=== PATIENT | male | born 1940 | race Caucasian/White ===

== ENCOUNTER 2022-08-26 17:24 | Inpatient (IN) | payer OTHER ==
[~2022-08-26] VITALS: Ht 180.3 cm; Wt 78.0 kg
[2022-08-26] MEDS ORDERED: Zyloprim300 MG PO (17:40)
[2022-08-26] MEDS ORDERED: TAMS.4ER PO (17:41)
[2022-08-26] MEDS ORDERED: Prinivil10 MG PO (17:41)
[2022-08-26] MEDS ORDERED: LEVOTHYROXINE75 MC8 PO (17:41)
[2022-08-26 17:56] LABS: BASOPHILS ABSOLUTE AUTO 0.03 K/mm3 (0.00-0.23); BASOPHILS PERCENT AUTO 1 % (0-2); EOSINOPHILS ABSOLUTE AUTO 0.14 K/mm3 (0.00-0.68); EOSINOPHILS PERCENT AUTO 3 % (0-6); Hematocrit 31.4 % (37.0-53.0); Hemoglobin 10.6 g/dL (13.5-17.5); IMMATURE GRAN ABSOLUTE AUTO 0.02 K/mm3 (0.00-0.10); IMMATURE GRAN PERCENT AUTO 0 % (0-1); LYMPHOCYTES ABSOLUTE AUTO 1.24 K/mm3 (0.84-5.20); LYMPHOCYTES PERCENT AUTO 23 % (21-46); MONOCYTES ABSOLUTE AUTO 0.41 K/mm3 (0.16-1.47); MONOCYTES PERCENT AUTO 8 % (4-13); Mean Corpuscular HGB 29.7 pg (26.0-34.0); Mean Corpuscular HGB Conc 33.8 g/dL (31.5-36.5); Mean Corpuscular Volume 88 fL (80-100); Mean Platelet Volume 10.4 fL (9.1-12.4); NEUTROPHILS PERCENT AUTO 66 % (41-73); Platelet Count 271 K/mm3 (150-400); RDW Coefficient Variation 14.7 % (11.7-14.2); RDW Standard Deviation 47.1 fL (35.1-46.3); Red Blood Cell Count 3.57 M/mm3 (4.30-5.90); White Blood Cell Count 5.44 K/mm3 (4.00-11.30)
[2022-08-26 18:16] LABS: Albumin, Blood 3.6 g/dL (3.4-5.0); Albumin/Globulin Ratio 1.2 (0.8-1.8); Bilirubin, Total 0.4 mg/dL (0.1-1.0); Bun/Creatinine Ratio 13.7 (12.0-20.0); Calcium, Blood 6.9 mg/dL (8.5-10.1); Creatinine, Blood 1.83 mg/dL (0.60-1.20); Potassium, Blood 7.3 mmol/L (3.5-5.5); Total Protein, Blood 6.6 g/dL (6.4-8.2)
[2022-08-26 20:01] LABS: Bun/Creatinine Ratio 13.7 (12.0-20.0); Calcium, Blood 6.8 mg/dL (8.5-10.1); Creatinine, Blood 1.82 mg/dL (0.60-1.20)
[2022-08-26 20:18] LABS: Influenza A, PCR NEGATIVE (NEGATIVE); Influenza B, PCR NEGATIVE (NEGATIVE); Resp Syncytial Virus, PCR NEGATIVE (NEGATIVE); SARS-Cov-2 (COVID-19) PCR, MMC NEGATIVE (NEGATIVE)
[2022-08-26 22:30] LABS: Phosphorus, Blood 3.3 mg/dL (2.5-4.9); Thyroid Stimulating Hormone 0.697 uIU/mL (0.360-4.800); Uric Acid, Blood 2.2 mg/dL (3.5-7.2)
[2022-08-27 00:56] LABS: Calcium, Blood 6.2 mg/dL (8.5-10.1); Creatinine, Blood 1.8 mg/dL (0.60-1.20); Potassium, Blood 6.6 mmol/L (3.5-5.5)
[2022-08-27 02:38] LABS: Bun/Creatinine Ratio 14.4 (12.0-20.0); Calcium, Blood 5.6 mg/dL (8.5-10.1); Creatinine, Blood 1.8 mg/dL (0.60-1.20); Potassium, Blood 6.3 mmol/L (3.5-5.5)
[2022-08-27 05:07] LABS: Hematocrit 30.5 % (37.0-53.0); Mean Corpuscular HGB 30.2 pg (26.0-34.0); Mean Corpuscular HGB Conc 32.8 g/dL (31.5-36.5); Mean Corpuscular Volume 92 fL (80-100); Mean Platelet Volume 10.5 fL (9.1-12.4); Platelet Count 253 K/mm3 (150-400); RDW Coefficient Variation 15.2 % (11.7-14.2); RDW Standard Deviation 51.3 fL (35.1-46.3); Red Blood Cell Count 3.31 M/mm3 (4.30-5.90); White Blood Cell Count 7.79 K/mm3 (4.00-11.30)
--- NOTE | 2022-08-27 05:38 | NUR ---
SHIFT SUMMARY 82 YR M ADMITTED ON 08/26/22 FOR HYPERKALEMIA. DNR. PT'S K+ LEVEL IS TRENDING DOWN AFTER FIRST GOING UP FROM 6.0 TO 6.6 BETWEEN 1930 AND MIDNIGHT LAST NIGHT. TX WAS ORDERED AND GIVEN BUT LABS WERE DRAWN MINUTES BEFORE AND NEXT ROUND OF TX WAS BASED ON THOSE LABS. CALLED HOSPITALIST AND SECOND ROUND OF TX FOR HYPERKALEMIA WAS HELD PENDING LATEST TEST RESULTS. AT APPROX 0400 PTSTATED THAT HE WAS HAVING PAIN AND TIGHTNESS IN HIS CHEST. HOSPITALIST WAS CALLED AND EKG WELL NITRO WAS ORDERED. TROPONIN LABS WELL. EKGHAD SLIGHT CHANGE FROM PRIOR ONE DONE IN ED, AND TROPONIN LABS ARE NOT IN YET. PT TOOK 1 NITRO AND STATED THAT HE FELT MUCH BETTER. WILL CONTINUE TO MONITOR.
[2022-08-27 05:52] LABS: Albumin, Blood 3.1 g/dL (3.4-5.0); Anion Gap 7 mmol/L (6-16); Blood Urea Nitrogen 25 mg/dL (8-24); Bun/Creatinine Ratio 14.6 (12.0-20.0); CO2, Blood 16 mmol/L (21-32); Calcium, Blood 6.6 mg/dL (8.5-10.1); Chloride, Blood 118 mmol/L (98-108); Creatinine, Blood 1.71 mg/dL (0.60-1.20); Glomerular Filtration Rate 39 (60-); Glucose, Blood 49 mg/dL (70-99); Phosphorus, Blood 3.2 mg/dL (2.5-4.9); Sodium, Blood 141 mmol/L (136-145)
--- NOTE | 2022-08-27 06:07 | NUR ---
SPOKE WITH DR RENDON, HE REVIEWED THE EKG. I LET HIM KNOW THE TROPONIN IS NOW 102 AND THE POTASSIUM IS NOW WNL. PT'S BS IS 49. DR ORDERED D50 AND A REPEAT TROPONIN AT 0800. WILL UPDATE PRIMARY RN.
[2022-08-27 08:17] LABS: Bun/Creatinine Ratio 14.9 (12.0-20.0); Calcium, Blood 6.3 mg/dL (8.5-10.1); Creatinine, Blood 1.68 mg/dL (0.60-1.20); Potassium, Blood 5.5 mmol/L (3.5-5.5)
--- NOTE | 2022-08-27 13:59 | NUR ---
CASE ASSISTANT CALLED RN AND REPORTS PATIENT RATE DROPPED TO 49 BPM AND IS NOW LOW 50'S.
--- NOTE | 2022-08-27 14:23 | NUR ---
DR. JANE NOTIFIED OF PATIENT'S BRADYCARDIA
--- NOTE | 2022-08-27 19:28 | NUR ---
PATIENT IS ALERT AND ORIENTED AND COOPERATIVE WITH CARE. NO C/O CP THIS SHIFT. FIRST PART OF STRESS TEST WAS COMPLETED TODAY. PLAN IS TO FINISH THE STRESS TEST TOMORROW MORNING. INDEPENDENT IN ROOM. NO C/O PAIN. REPORT GIVEN TO ONCOMING RN.
--- NOTE | 2022-08-28 05:02 | NUR ---
NIGHTSHIFT SUMMARY Patient AOx4, independent in room. Denied muscle weakness, syncope when walking. Patient reported minor episode of chest pain. He reported pain when walking back to bed from bathroom, but once in bed pain resolved. He reported the next few times he walked to BR, no pain occurred. No caffiene after 8pm, NPO at midnight, for stess test in AM. Vitals stable this shift. No other concerns, plan is to continue to monitor for cardiac sx, and awaiting tests this morning.
[2022-08-28 06:55] LABS: CHOL/HDL RATIO 4.1; Cholesterol 103 mg/dL (50-200); HDL Cholesterol 25 mg/dL (>39); LDL/HDL RATIO 2.3; Low Density Lipoprotein Chol 57 mg/dL (0-110); Triglycerides 107 mg/dL (30-160); Very Low Density Lipoprot Chol 21 mg/dL (6-32)
--- NOTE | 2022-08-28 18:35 | NUR ---
SHIFT SUMMARY: PT A/O X 4 BUT FORGETFUL AT TIMES. PLEASANT AND COOPERATIVE. PT IND IN ROOM, STABLE ON FEET. PT PT DENIED CP THROUGHOUT THE DAY. NO SOB WITH EXERTION. PT EATING AND DRINKING FLUIDS WELL. ECHO COMPLETED TODAY.
--- NOTE | 2022-08-29 03:49 | NUR ---
SHIFT SUMMARY NO ACUTE CHANGES OVERNIGHT. AOX4. SOME FORGETFUL BUT EASILY REDIRECTED. VSS. DENIES CHEST PAIN, SOB, DIZZINESS, LIGHT-HEADEDNESS, NUMBNESS AND TINGLING SENSATION. TOLEARATING PO INTAKE. PT HAS BEEN DRINKING A LOT OF WATER AND VOIDING FREQUENTLY. SLEPT GOOD T/O SHIFT. HEPARIN AT NIGHT. TELE REMAINED SINUS SON AT 50'S WITH BBB. CALL LIGHT [employer]. WILL CONTINUE MONITOR AND WILL PROVIDE REPORT TO ONCOMING NURSE.
[2022-08-29 08:54] LABS: BASOPHILS ABSOLUTE AUTO 0.03 K/mm3 (0.00-0.23); BASOPHILS PERCENT AUTO 1 % (0-2); EOSINOPHILS PERCENT AUTO 4 % (0-6); Hematocrit 30.8 % (37.0-53.0); Hemoglobin 9.9 g/dL (13.5-17.5); IMMATURE GRAN ABSOLUTE AUTO 0.03 K/mm3 (0.00-0.10); IMMATURE GRAN PERCENT AUTO 1 % (0-1); LYMPHOCYTES ABSOLUTE AUTO 1.17 K/mm3 (0.84-5.20); LYMPHOCYTES PERCENT AUTO 24 % (21-46); MONOCYTES PERCENT AUTO 10 % (4-13); Mean Corpuscular HGB 29.6 pg (26.0-34.0); Mean Corpuscular HGB Conc 32.1 g/dL (31.5-36.5); Mean Corpuscular Volume 92 fL (80-100); Mean Platelet Volume 10.4 fL (9.1-12.4); NEUTROPHILS ABSOLUTE AUTO 3.04 K/mm3 (1.96-9.15); NEUTROPHILS PERCENT AUTO 61 % (41-73); Platelet Count 236 K/mm3 (150-400); RDW Coefficient Variation 14.8 % (11.7-14.2); RDW Standard Deviation 50.5 fL (35.1-46.3); Red Blood Cell Count 3.34 M/mm3 (4.30-5.90); White Blood Cell Count 4.97 K/mm3 (4.00-11.30)
[2022-08-29 09:51] LABS: Albumin, Blood 3.1 g/dL (3.4-5.0); Albumin/Globulin Ratio 1.1 (0.8-1.8); Bilirubin, Total 0.4 mg/dL (0.1-1.0); Bun/Creatinine Ratio 16.1 (12.0-20.0); Calcium, Blood 6.2 mg/dL (8.5-10.1); Creatinine, Blood 1.8 mg/dL (0.60-1.20); Globulin, Blood 2.8 g/dL (2.2-4.0); Potassium, Blood 5.5 mmol/L (3.5-5.5); Total Protein, Blood 5.9 g/dL (6.4-8.2)
[2022-08-29] MEDS ORDERED: AMLO5 PO (11:46)
[2022-08-29] MEDS ORDERED: ASPI81CH PO (11:46)
[2022-08-29] MEDS ORDERED: ATOR40TA PO (11:46)
[2022-08-29] MEDS ORDERED: SODBIC650 PO (11:47)
--- NOTE | 2022-08-29 12:44 | NUR ---
DISCHARGE 1215 PATIENT WAS DISCHARGED TO HOME THIS AFTERNOON. HE WAS ACCOMPANIED AND TRANSPORTED BY HIS . DISCHARGE INSTRUCTIONS WERE REVIEWED WITH THE PATIENT AND HIS . [facility]. PATIENT IS AWARE OF FOLLOW UP RECOMMENDATIONS. IV WAS REMOVED, TELEMETRY DISCONTINUED. PATIENT WAS WHEELED DOWNSTAIRS IN A BY [facility] STAFF, TO MEET UP WITH HIS TRANSPORTING VIA AUTO.
[2022-09-18] MEDS ORDERED: Calcium Carbon500 MG PO (13:24)
[2022-09-18] MEDS ORDERED: OXAYDO5 M2 PO (13:28)
[2022-09-18] MEDS ORDERED: Cyclobenzaprine5 MG PO (13:29)
[2022-09-18] MEDS ORDERED: PRED20 PO (13:29)
== END 2022-08-29 12:35 | disposition home or self-care (01) | DRG 683 ==
LOC: ER 17:24 → MEDS 23:22
PROVIDERS: Emergency Medicine; Internal Medicine; Physician Assistant; Student in an Organized Health Care Education/Training Program; ADMIT Hospitalist
DX: N17.9 Acute kidney failure, unspecified (principal); I20.0 Unstable angina; E87.5 Hyperkalemia; Z20.822 Contact with and (suspected) exposure to COVID-19; Z66 Do not resuscitate; N18.30 Chronic kidney disease, stage 3 unspecified; D63.1 Anemia in chronic kidney disease; R79.89 Other specified abnormal findings of blood chemistry; I12.9 Hypertensive chronic kidney disease with stage 1 through stage 4 chronic kidney disease, or unspecified chronic kidney disease; N18.9 Chronic kidney disease, unspecified; E03.9 Hypothyroidism, unspecified; M10.9 Gout, unspecified; N40.0 Benign prostatic hyperplasia without lower urinary tract symptoms; Z88.0 Allergy status to penicillin; Z79.899 Other long term (current) drug therapy
CPT/HCPCS: 0241U; 36415; 71046; 76770; 78452; 80048; 80053; 80061; 80069; 82330; 82550; 82947; 83880; 84100; 84443; 84484; 84550; 85025; 85027; 93005; 93010; 93017; 93306; 94760; 96374; 96375; 97116; 97162; 97166; 97530; 97535; 99285-25; A9270; A9500; J0610; J0706; J1644; J1815; J2785; J7030

== ENCOUNTER 2022-09-17 14:18 | Observation (INO) | payer OTHER ==
[~2022-09-17] VITALS: Ht 180.3 cm; Wt 77.6 kg
[~2022-09-17 14:18] MED LIST: AMLO5 PO; ASPI81CH PO; ATOR40TA PO; LEVOTHYROXINE75 MC8 PO; Prinivil10 MG PO; SODBIC650 PO; TAMS.4ER PO; Zyloprim300 MG PO
[2022-09-17 14:37] LABS: BASOPHILS ABSOLUTE AUTO 0.03 K/mm3 (0.00-0.23); BASOPHILS PERCENT AUTO 0 % (0-2); EOSINOPHILS ABSOLUTE AUTO 0.05 K/mm3 (0.00-0.68); EOSINOPHILS PERCENT AUTO 0 % (0-6); Hematocrit 31.4 % (37.0-53.0); Hemoglobin 10.7 g/dL (13.5-17.5); IMMATURE GRAN ABSOLUTE AUTO 0.04 K/mm3 (0.00-0.10); IMMATURE GRAN PERCENT AUTO 0 % (0-1); LYMPHOCYTES PERCENT AUTO 7 % (21-46); MONOCYTES ABSOLUTE AUTO 0.92 K/mm3 (0.16-1.47); MONOCYTES PERCENT AUTO 8 % (4-13); Mean Corpuscular HGB 30.1 pg (26.0-34.0); Mean Corpuscular HGB Conc 34.1 g/dL (31.5-36.5); Mean Corpuscular Volume 88 fL (80-100); Mean Platelet Volume 10.4 fL (9.1-12.4); NEUTROPHILS ABSOLUTE AUTO 9.85 K/mm3 (1.96-9.15); NEUTROPHILS PERCENT AUTO 84 % (41-73); Platelet Count 291 K/mm3 (150-400); RDW Coefficient Variation 14.3 % (11.7-14.2); RDW Standard Deviation 46.5 fL (35.1-46.3); Red Blood Cell Count 3.56 M/mm3 (4.30-5.90); White Blood Cell Count 11.69 K/mm3 (4.00-11.30)
[2022-09-17 14:59] LABS: Albumin, Blood 3.5 g/dL (3.4-5.0); Bilirubin, Total 0.7 mg/dL (0.1-1.0); Bun/Creatinine Ratio 19.1 (12.0-20.0); Calcium, Blood 6.6 mg/dL (8.5-10.1); Creatinine, Blood 1.36 mg/dL (0.60-1.20); Globulin, Blood 3.6 g/dL (2.2-4.0); Potassium, Blood 5.5 mmol/L (3.5-5.5); Total Protein, Blood 7.1 g/dL (6.4-8.2)
[2022-09-17 16:55] LABS: Magnesium, Blood 1.7 mg/dL (1.6-2.4)
[2022-09-17 16:57] LABS: Phosphorus, Blood 3.9 mg/dL (2.5-4.9); Thyroid Stimulating Hormone 1.17 uIU/mL (0.360-4.800)
[2022-09-17 18:35] LABS: Base Excess Venous -8.8 mmol/L; Bicarbonate Venous 17.4 mmol/L (24.0-30.0); PCO2 Venous 39.3 mmHg (38-42); pH Blood Venous 7.27 (7.34-7.37)
--- NOTE | 2022-09-17 22:32 | NUR ---
ER ADMIT PT ARRIVED TO UNIT FROM ER AT APPROX 2014. PT ARRIVED IN ED WITH C/O NECK PAIN, CT SCAN CAME BACK CLEAN. PT WAS ADMITTED FOR HYPOGLYCEMIA AND ACIDOSIS, PH 7.27 CA 6.6. ROOM AIR, ON TELEMETRY RUNNING SR @ 68. PT AOX4, IND IN ROOM, [facility], ORIENTED TO UNIT AND CALL LIGHT.
--- NOTE | 2022-09-18 01:58 | NUR ---
CALLED PROVIDER - SEVERE PAIN PT IS HAVING UNCONTROLLED 10/10 NECK PAIN, EVEN AFTER A ONE TIME DOSE OF FLEXERIL AT 2100. CALLED HOSPITALIST DR. RENDON WHO ORDERED 15 MG IV TORADOL NOW ONE TIME AND TO INCREASE OXYCODONE Q4 DOSE FROM 5 MG TO 10 MG.
--- NOTE | 2022-09-18 05:31 | NUR ---
SHIFT SUMMARY PT ARRIVED TO THIS UNIT FROM THE ED AT APPROX 2014. PT CAME TO THE HOSPITAL FOR SEVERE NECK PAIN, AND WHILE AT THE ER THEY FOUND HYPOCALCEMIA. CT OF THE NECK WAS WNL. PT CONTINUED TO HAVE SEVERE NECK PAIN HERE, CALLED THE HOSPITALIST AND GAVE MUSCLE RELAXER AND PAIN MEDICATION ORDERED. PAIN CONTINUED AND DR. RENDON ORDERED 15 MG OF TORIDOL WHICH CONTROLLED THE PT'S PAIN WELL AND HE WAS ABLE TO SLEEP. 2 GM OF IV CA AT THE ED RAISED PT'S CALCIUM FROM 6.6 TO 6.8, CONTACTED DR. RENDON WHO ORDERED ANOTHER 2 GM OF IV CALCIUM GLUCONATE ONE TIME. AFTER TORIDOL PT SLEPT COMFORTABLY. PT AOX4, INDEPENDENT IN ROOM, VSS, PLEASANT AND COOPERATIVE WITH CARE.
[2022-09-18 05:37] LABS: Bun/Creatinine Ratio 18.8 (12.0-20.0); Calcium, Blood 7.1 mg/dL (8.5-10.1); Creatinine, Blood 1.6 mg/dL (0.60-1.20); Potassium, Blood 5.4 mmol/L (3.5-5.5)
[2022-09-18] MEDS ORDERED: Calcium Carbon500 MG PO ×2 (13:24)
[2022-09-18] MEDS ORDERED: OXAYDO5 M2 PO ×2 (13:28)
[2022-09-18] MEDS ORDERED: Cyclobenzaprine5 MG PO ×2 (13:29)
[2022-09-18] MEDS ORDERED: PRED20 PO ×2 (13:29)
--- NOTE | 2022-09-18 14:20 | NUR ---
PATIENT A&OX4. PLEASANT AND COOPERATIVE WITH CARE. USES CALL LIGHT APPROPRIATELY AND ABLE TO ADVOCATE FOR HIS NEEDS. PATIENT AMBULATES IN ROOM INDEPENDENTLY AND TO BATHROOM WITHOUT NEEDING ASSISTIVE DEVICE. LUNGS CLEAR T/O. DENIES CP/CHEST DISCOMFORT. PATIENT REPORTS OF HAVING NECK PAIN OF 2/10. OFFERED PAIN MEDICATION BUT DECLINE. PATIENT RECIEVED ALL SCHEDULED MEDICATION THIS SHIFT. VITAL SIGNS REVIEWED. PATIENT DISCHARGE HOME. DISCHARGE INSTRUCTIONS PACKET GIVEN TO PATIENT. EDUCATE PATIENT REGARDING DIADNOSIS, SIGN AND SYMPTOMS, TREATMENT, WELL NEW PRESCRIBED MEDICATION. PATIENT STATED UNDERSTANDING AND NO FURTHER QUESTIONS. RX WAS FAXED TO PATIENT PREFERRED PHARMACY ([facility] ALL PATIENT PERSONAL BELONGINGS WERE SENT HOME WITH THE PATIENT. IV WAS DC'D BY MARY FIORE. PATIENT WAS TRANSPORTED VIA WHEELCHAIR BY MARY FIORE TO PATIENT SPOUSE PRIVATE VEHICLE.
== END 2022-09-18 14:27 | disposition home or self-care (01) ==
LOC: ER 14:18 → MEDS 14:19
PROVIDERS: Emergency Medicine; Student in an Organized Health Care Education/Training Program; ADMIT Internal Medicine
DX: E83.51 Hypocalcemia (principal); E83.42 Hypomagnesemia; I12.9 Hypertensive chronic kidney disease with stage 1 through stage 4 chronic kidney disease, or unspecified chronic kidney disease; N18.30 Chronic kidney disease, stage 3 unspecified; M1A.9XX0 Chronic gout, unspecified, without tophus (tophi); D63.1 Anemia in chronic kidney disease; N40.0 Benign prostatic hyperplasia without lower urinary tract symptoms; N25.81 Secondary hyperparathyroidism of renal origin; M50.30 Other cervical disc degeneration, unspecified cervical region; E03.9 Hypothyroidism, unspecified; Z87.891 Personal history of nicotine dependence; Z79.899 Other long term (current) drug therapy
CPT/HCPCS: 36415; 72125; 80048; 80053; 82310; 82330; 82803; 83735; 83970; 84100; 84443; 84484; 85025; 93005; 93010; 96365; 96366; 96368; 96372; 96375; 96376; 99285-25; A9270; G0378; J0610; J1650; J1885; J3010; J3475; J7050

== ENCOUNTER 2022-09-19 17:45 | Emergency (ER) | payer OTHER ==
[~2022-09-19] VITALS: Ht 180.3 cm; Wt 67.1 kg
[~2022-09-19 17:45] MED LIST changes: +Calcium Carbon500 MG PO; +Cyclobenzaprine5 MG PO; +OXAYDO5 M2 PO; +PRED20 PO
[2022-09-19 18:23] LABS: BASOPHILS ABSOLUTE AUTO 0.01 K/mm3 (0.00-0.23); BASOPHILS PERCENT AUTO 0 % (0-2); EOSINOPHILS PERCENT AUTO 0 % (0-6); Hematocrit 27.2 % (37.0-53.0); Hemoglobin 9.3 g/dL (13.5-17.5); IMMATURE GRAN ABSOLUTE AUTO 0.03 K/mm3 (0.00-0.10); IMMATURE GRAN PERCENT AUTO 0 % (0-1); LYMPHOCYTES ABSOLUTE AUTO 0.36 K/mm3 (0.84-5.20); LYMPHOCYTES PERCENT AUTO 5 % (21-46); MONOCYTES ABSOLUTE AUTO 0.54 K/mm3 (0.16-1.47); MONOCYTES PERCENT AUTO 7 % (4-13); Mean Corpuscular HGB 29.9 pg (26.0-34.0); Mean Corpuscular HGB Conc 34.2 g/dL (31.5-36.5); Mean Corpuscular Volume 88 fL (80-100); Mean Platelet Volume 10.5 fL (9.1-12.4); NEUTROPHILS ABSOLUTE AUTO 6.36 K/mm3 (1.96-9.15); NEUTROPHILS PERCENT AUTO 87 % (41-73); Platelet Count 248 K/mm3 (150-400); RDW Coefficient Variation 14.1 % (11.7-14.2); RDW Standard Deviation 45.1 fL (35.1-46.3); Red Blood Cell Count 3.11 M/mm3 (4.30-5.90)
[2022-09-19 18:41] LABS: Albumin, Blood 3.1 g/dL (3.4-5.0); Albumin/Globulin Ratio 1.1 (0.8-1.8); Bilirubin, Total 0.4 mg/dL (0.1-1.0); Calcium, Blood 6.3 mg/dL (8.5-10.1); Creatinine, Blood 1.67 mg/dL (0.60-1.20); Globulin, Blood 2.9 g/dL (2.2-4.0); Potassium, Blood 4.7 mmol/L (3.5-5.5)
== END 2022-09-19 21:22 | disposition home or self-care (01) ==
LOC: ER 17:45
PROVIDERS: Emergency Medicine
DX: R07.9 Chest pain, unspecified (principal); R55 Syncope and collapse; I12.9 Hypertensive chronic kidney disease with stage 1 through stage 4 chronic kidney disease, or unspecified chronic kidney disease; N18.9 Chronic kidney disease, unspecified; E03.9 Hypothyroidism, unspecified; N40.0 Benign prostatic hyperplasia without lower urinary tract symptoms; Z79.899 Other long term (current) drug therapy; Z79.82 Long term (current) use of aspirin
CPT/HCPCS: 71045; 71275; 74175; 80053; 84484; 85025; 93005; 93010; J7030; Q9967